=== PATIENT | male | born 2000 | race Caucasian/White ===

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

== ENCOUNTER 2021-05-26 06:50 | Emergency (ER) | payer OTHER ==
[~2021-05-26] VITALS: Ht 172.7 cm; Wt 117.9 kg
[2021-05-26 08:41] VITALS: BP 112/51
== END 2021-05-26 08:39 | disposition home or self-care (01) ==
LOC: ER 06:50
DX: G47.9 Sleep disorder, unspecified (principal); R06.02 Shortness of breath; Z96.631 Presence of right artificial wrist joint; F17.210 Nicotine dependence, cigarettes, uncomplicated

== ENCOUNTER 2021-07-21 19:39 | Emergency (ER) | payer OTHER ==
[~2021-07-21] VITALS: Ht 167.6 cm; Wt 108.9 kg
[2021-07-21 20:22] LABS: ABSOLUTE NEUTROPHILS 7.9 thou/uL (1.4-8.2); BASOPHILS 0.7 % (0.0-2.0); EOSINOPHILS 2.3 % (0.0-3.0); HEMATOCRIT 44.7 % (42.0-52.0); LYMPHOCYTES 26.3 % (24.0-44.0); MCH 29.6 pg (26.0-34.0); MCHC 35.7 g/dL (28.0-37.0); MCV 82.9 fL (80.0-100.0); MONOCYTES 6.4 % (1.0-8.0); PLATELET COUNT 245 thou/uL (150-400); POLYS 64.3 % (36.0-66.0); RBC 5.39 mil/uL (4.50-6.00); RDW 13.5 % (10.5-14.5); WBC 12.3 thou/uL (4.0-11.0)
[2021-07-21 20:43] LABS: CALCIUM 9.1 mg/dL (8.5-10.1); CREATININE 0.9 mg/dL (0.7-1.3); POTASSIUM 3.7 mmol/L (3.5-5.1)
[2021-07-21 20:52] LABS: ALBUMIN 3.9 g/dL (3.4-5.0); TOTAL BILIRUBIN 0.5 mg/dL (0.2-1.0); TOTAL PROTEIN 7.3 g/dL (6.4-8.2)
[2021-07-22 00:05] VITALS: BP 109/54
--- NOTE | 2021-07-24 07:26 | EKG ---
[place] [address] 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 : 2000 Requested By: Aubrey Plascencia Order Number: [id number] MD: Jez Stone Measurements Intervals [place] Rate: 62 P: 0 [place]: QRS: 20 QRSD: 99 T: -1 QT: 402 QTc: 409 Interpretive Statements Sinus rhythm Second deg AVB, Mobitz I (Wenckebach) Nonspecific repol abnormality, inferior leads Compared to ECG 12/31/2020 22:28:15 Early repolarization now present First degree AV block no longer present Electronically Signed On 07-24-2021 7:25:48 CDT by Jez Stone [email or web address] <ELECTRONICALLY SIGNED> By: Jez Stone MD, [facility] 07/24/21 0725 44 44 Jez Stone MD, [facility] /EPI
== END 2021-07-22 00:05 | disposition home or self-care (01) ==
LOC: ER 19:39
PROVIDERS: Emergency Medicine
DX: I44.1 Atrioventricular block, second degree (principal); R07.89 Other chest pain; F17.210 Nicotine dependence, cigarettes, uncomplicated

== ENCOUNTER 2022-01-04 15:51 | Emergency (ER) | payer OTHER ==
[~2022-01-04] VITALS: Ht 167.6 cm; Wt 83.9 kg
[2022-01-04] MEDS ORDERED: IBUPROFEN200 MG PO (16:04)
[2022-01-04 16:46] LABS: HEMATOCRIT 46.3 % (42.0-52.0); HEMOGLOBIN 16.4 gm/dL (14.0-18.0); MCH 28.9 pg (26.0-34.0); MCHC 35.4 g/dL (28.0-37.0); MCV 81.5 fL (80.0-100.0); RBC 5.68 mil/uL (4.50-6.00); RDW 13.2 % (10.5-14.5); WBC 10.3 thou/uL (4.0-11.0)
[2022-01-04 16:51] LABS: CALCIUM 9.3 mg/dL (8.5-10.1); CREATININE 0.9 mg/dL (0.7-1.3); POTASSIUM 3.8 mmol/L (3.5-5.1)
[2022-01-04 17:01] LABS: ALBUMIN 4.1 g/dL (3.4-5.0); TOTAL BILIRUBIN 0.5 mg/dL (0.2-1.0); TOTAL PROTEIN 7.5 g/dL (6.4-8.2)
[2022-01-04 17:14] LABS: URINE BILIRUBIN NEGATIVE (Negative); URINE BLOOD NEGATIVE (Negative); URINE CLARITY CLEAR; URINE COLOR YELLOW; URINE GLUCOSE-RANDOM* NEGATIVE (Negative); URINE KETONES NEGATIVE (Negative); URINE LEUKOCYTES-REFLEX NEGATIVE (Negative); URINE NITRITE-REFLEX NEGATIVE (Negative); URINE PROTEIN (DIPSTICK) NEGATIVE (Negative)
[2022-01-04 17:30] LABS: AMP/METHAMP Negative (Negative); BARBITURATES Negative (Negative); BENZODIAZEPINES Negative (Negative); COCAINE Negative (Negative); METHADONE Negative (Negative); OPIATES Negative (Negative); PCP Negative (Negative)
[2022-01-04 17:58] VITALS: BP 126/81
--- NOTE | 2022-01-05 09:12 | EKG ---
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 Requested By: Mary Porter Order Number: [id number] MD: José Manuel Good Measurements Intervals [place] Rate: 65 P: 56 IL: QRS: 37 QRSD: 98 T: -6 QT: 393 QTc: 409 Interpretive Statements Sinus bradycardia Second deg AVB, Mobitz I (Jaspreetnckebach) Compared to ECG 07/21/2021 19:45:29 Mobitz type I heart block is present Electronically Signed On 01-05-2022 9:12:22 TEXTILE CONSERVATOR by José Manuel Good [email or web address] <ELECTRONICALLY SIGNED> By: José Manuel Good MD, [facility] 01/05/2212 1556 1556 José Manuel Good MD, FAC /EPI
== END 2022-01-04 17:59 | disposition home or self-care (01) ==
LOC: ER 15:51
PROVIDERS: Student in an Organized Health Care Education/Training Program
DX: I44.1 Atrioventricular block, second degree (principal); R07.89 Other chest pain; F17.210 Nicotine dependence, cigarettes, uncomplicated; F12.90 Cannabis use, unspecified, uncomplicated; Z98.890 Other specified postprocedural states; Z79.899 Other long term (current) drug therapy